=== PATIENT | male | born 1990 | race Caucasian/White ===

== ENCOUNTER 2016-11-10 00:57 | Emergency (ER) | payer MEDICAID ==
[2016-11-10 00:57] VITALS: BMI 28.0
[2016-11-10 01:18] VITALS: BP 113/82; PULSE 88; RESP 16; TEMP 97.7; O2SAT 97
[2016-11-10] MEDS ORDERED: Tramadol 25 mg PO STA (02:15)
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
== END 2016-11-10 02:29 | disposition home or self-care (01) ==
LOC: C.ER 00:57
DX: S80.212A Abrasion, left knee, initial encounter (principal); S00.81XA Abrasion of other part of head, initial encounter; S50.312A Abrasion of left elbow, initial encounter; S50.311A Abrasion of right elbow, initial encounter; V19.88XA Pedal cyclist (driver) (passenger) injured in other specified transport accidents, initial encounter; Y93.55 Activity, bike riding; Y92.410 Unspecified street and highway as the place of occurrence of the external cause

== ENCOUNTER 2018-11-29 22:59 | Emergency (ER) | payer MEDICAID ==
[2018-11-29 22:59] VITALS: BMI 28.0
[2018-11-30] MEDS ORDERED: Dexamethasone 4 mg/1 ml IM STA (00:10)
[2018-11-30] MEDS ORDERED: Dexamethasone 4 mg/1 ml ONE (00:17)
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
[2018-11-30 02:07] VITALS: BP 137/69; PULSE 78; RESP 18; TEMP 98.2
[2018-11-30 02:16] VITALS: O2SAT 97
--- NOTE | 2018-11-30 07:46 | RAD ---
Date of service: 11/30/2018 PROCEDURE: Bilateral Knee Radiographs. HISTORY: knee pain, several months COMPARISON: None. TECHNIQUE: 4 views obtained. FINDINGS: BONES: No acute fracture or destructive bony lesion identified, bilateral knees. JOINTS: Right Knee: No subluxation or dislocation. Left knee: No subluxation or dislocation. SOFT TISSUES: Right Knee: Normal. Left Knee: Normal. JOINT EFFUSION: Right Knee: Questionable small right suprapatellar bursa effusion. Left Knee: None. OTHER FINDINGS: None. IMPRESSION: No acute fracture, dislocation or subluxation identified. Right suprapatellar bursa effusion in question. None is identified at the left..
== END 2018-11-30 02:07 | disposition home or self-care (01) ==
LOC: C.ER 22:59
DX: M25.561 Pain in right knee (principal); M25.562 Pain in left knee
CPT/HCPCS: 73562; 96372; 99284; J1100; J1885